=== PATIENT | male | born 1995 | race Caucasian/White ===

== ENCOUNTER → 2016-10-18 | Outpatient (POV) ==
[2015-12-18 08:42] VITALS: BMI 30.9
== END ==
LOC: OUTPT 00:01
PROVIDERS: ATTEND Otolaryngology
DX: Z02.1 Encounter for pre-employment examination (principal)
CPT/HCPCS: 92567

== ENCOUNTER 2017-05-05 23:55 | Emergency (ER) ==
[2017-05-06 00:07] VITALS: BMI 31.1
[2017-05-06] MEDS ORDERED: SODIUM CHLORIDE 1,000 ML IV STA ×3 (00:07→00:08)
[2017-05-06] MEDS ORDERED: ZOFRAN 4 MG/2 ML IVP STA (00:08)
[2017-05-06] MEDS ORDERED: MORPHINE 2 MG/ML SYRINGE IVP STA (00:08)
--- NOTE | 2017-05-06 00:42 | CT ---
EXAM: CT abdomen pelvis without intravenous contrast 06/06/2016. Sagittal and coronal reformatted i mages obtained HISTORY: Mid abdominal pain. Recurrent vomiting COMPARISON: 06/10/2012 FINDINGS: The liver, gallbladder, adrenal glands and kidneys show no acute abnormality. No urinary obstruction. The spleen and pancreas show no acute process. There is no evidence of bowel obstruction. Normal appendix. Unremarkable urinary bladder. No free air or free fluid There are air-fluid levels throughout small bowel and colon. The appearance is suggestive of enterit is/diarrhea. IMPRESSION: 1. No urinary or bowel obstruction and normal appendix 2. Air-fluid levels throughout small bowel and colon. The appearance is suggestive of enteritis/coral rrhea.
[2017-05-06 00:47] LABS: BASOPHILS % (AUTO) 0.1 % (0.0-3.0); EOSINOPHILS % (AUTO) 0.4 % (0.0-7.0); HEMATOCRIT 42.4 % (42.0-52.0); HEMOGLOBIN 15.3 g/dl (14.0-18.0); IMMATURE GRANULOCYTE % (AUTO) 0.3 % (0.0-5.0); LYMPHOCYTES # (AUTO) 0.3 K/uL (0.60-3.4); LYMPHOCYTES % (AUTO) 3.9 (10.0-50.0); MEAN CORPUSCULAR HEMOGLOBIN 27.7 pg (27.0-31.0); MEAN CORPUSCULAR HGB CONC 36.1 (31.8-35.4); MEAN CORPUSCULAR VOLUME 76.7 fl (80.0-94.0); MONOCYTES # (AUTO) 0.4 K/uL (0.4-2.0); MONOCYTES % (AUTO) 4.5 (0-10); NEUTROPHILS # (AUTO) 7.2 K/ul (2.0-6.9); NEUTROPHILS % (AUTO) 90.8; PLATELET COUNT 205 10^3/uL (140-440); RED BLOOD COUNT 5.53 10^6/ul (4.70-6.10); WHITE BLOOD COUNT 7.92 K/ul (4.2-10.2)
[2017-05-06 01:00] LABS: BILIRUBIN,URINE Negative (NEGATIVE); KETONES,URINE Negative (NEGATIVE); LEUKOCYTE ESTERASE ,URINE Negative (NEGATIVE); NITRITE,URINE Negative (NEGATIVE); PH,URINE 8.5 (5-9); PROTEIN,URINE 1+ (NEGATIVE); URINE, BLOOD Negative (NEGATIVE)
[2017-05-06 01:01] LABS: ADD URINE MICROSCOPIC YES
[2017-05-06 01:08] LABS: ALBUMIN 3.9 g/dL (3.4-5.0); ALBUMIN/GLOBULIN RATIO 1.15; ANION GAP 17.4; BILIRUBIN,TOTAL 0.76 mg/dL (0.00-1.20); BUN/CREATININE RATIO 19.51; CALCIUM 9.3 mg/dL (8.2-10.2); CREATININE 0.82 mg/dL (0.60-1.10); POTASSIUM 3.4 mmol/L (3.5-5.1); TOTAL PROTEIN 7.3 g/dL (6.4-8.2)
[2017-05-06 01:10] LABS: FLU INTERNAL QC INTERNAL QC VALID; RAPID FLU A NEGATIVE (NEGATIVE); RAPID FLU B NEGATIVE (NEGATIVE)
[2017-05-06 01:27] LABS: ERYTHROCYTE SEDIMENTATION RATE 2 mm/hr (0-15); ESR INTERNAL QC INTERNAL QC VALID
--- NOTE | 2017-05-06 01:45 | ED.PDOC ---
General ED Provider: Dr. MARSHALL LÓPEZ-ER Chief Complaint: Nausea/Vomiting Stated Complaint: he notes having vomiting and nonbloody diarrhea over past several hours--several family members ill with same illness Time Seen by Physician: 23:55 Mode of Arrival: Walk-In Information Source: Patient Exam Limitations: No limitations Primary Care Provider: GLEN GARCIANEW [facility] Nursing and Triage Documentation Reviewed and Agree: Yes GI Complaint Exam - Vomiting/Diarrhea Complaint/Exam Onset/Duration: several hours Symptoms Are: Still present Initial Severity: Mild Current Severity: Moderate Character of Vomiting: Reports: Non-bilious Character of Diarrhea: Reports: Watery Aggravating: Reports: None Alleviating: Reports: None Associated Signs and Symptoms: Reports: Abdominal pain, Cramping Non-GI Risk Factors: Reports: None Abdominal Findings: Present: None Kussmaul Respirations Present: No Differential Diagnoses: Dehydration, Viral Gastroenteritis, Bacterial Gastroenteritis Review of Systems - Review Of Systems Constitutional: Reports: No symptoms Eyes: Reports: No symptoms Ears, Nose, Mouth, Throat: Reports: No symptoms Respiratory: Reports: No symptoms Cardiac: Reports: No symptoms GI: Reports: Diarrhea, Nausea, Vomiting : Reports: No symptoms Musculoskeletal: Reports: No symptoms Skin: Reports: No symptoms Neurological: Reports: No symptoms Endocrine: Reports: No symptoms Hematologic/Lymphatic: Reports: No symptoms All Other Systems: Reviewed and Negative Past Medical History - Past Medical History Previously Healthy: No Endocrine: Reports: None Cardiovascular: Reports: None Respiratory: Reports: None Hematological: Reports: None Gastrointestinal: Reports: None Genitourinary: Reports: None Neuro/Psych: Reports: None Musculoskeletal: Reports: Other (tenderness anterior chest wall nonfocal left >> right) Cancer: Reports: None Other Pertinent Past Medical History: Prior back injury ; runs 4 miles a day - Surgical History General Surgical History: Reports: None - Family History Family History: Reports: None - Social History Smoking Status: Former smoker Hx Substance Use: No (OCC. POT IN THE PAST) Alcohol Screening: Occasionally - Immunizations Tetanus Shot up to Date: (UNKNOWN) Physical Exam - Physical Exam Appearance: Well-appearing, No pain distress, Well-nourished Eyes: ODETTE ENT: Ears normal, Nose normal, Oropharynx normal Neck: Supple Respiratory: Airway patent Cardiovascular: RRR, Pulses normal, No rub, No murmur GI/: Soft, Nontender, No masses, Bowel sounds normal, No Organomegaly Musculoskeletal: Normal strength Skin: Warm, Dry, Normal color Neurological: Sensation intact Psychiatric: Affect appropriate, Mood appropriate Interpretation - Radiology Interpretation Radiology Interpretation By: Radiologist Radiology Results: Negative Exam Interpreted: CT Scan Re-Evaluation - Re-Evaluation Time of Re-Evaluation: 01:46 Status: Improved Vital Signs Stable: Yes Pain Level: 0 Appearance: NAD Lungs: Clear Skin: Warm and Dry Neuro: Alert and Oriented X3 CV: RRR Critical Care Note - Critical Care Note Total Time (mins): 0 Course - Course Hematology/Chemistry: 05/06/17 00:30 05/06/17 00:30 Orders, Labs, Meds: Lab Review 05/06/17 05/06/17 05/06/17 00:09 00:15 00:30 WBC 7.92 RBC 5.53 Hgb 15.3 Hct 42.4 MCV 76.7 L MCH 27.7 MCHC 36.1 H RDW Coeff of [place] 13.0 Plt Count 205 Immature Gran % (Auto) 0.3 Neut % (Auto) 90.8 Lymph % (Auto) 3.9 L [place] % (Auto) 4.5 Eos % (Auto) 0.4 Baso % (Auto) 0.1 Immature Gran # (Auto) 0.0 Neut # 7.2 H Lymph # 0.3 L [place] # 0.4 Eos # 0.0 Baso # 0.0 ESR 2 Sodium Potassium Chloride Carbon Dioxide Anion Gap BUN Creatinine Estimated GFR (MDRD) BUN/Creatinine Ratio Glucose Lactic Acid Calcium Total Bilirubin AST ALT Alkaline Phosphatase Total Protein Albumin Globulin Albumin/Globulin Ratio Amylase Lipase Procalcitonin Urine Color Yellow Urine Clarity Clear Urine pH 8.5 Ur Specific [place] 1.015 Urine Protein 1+ Urine Glucose (UA) Negative Urine Ketones Negative Urine Blood Negative Urine Nitrite Negative Urine Bilirubin Negative Urine Urobilinogen 1.0 Ur Leukocyte Esterase Negative Ur Squamous Epith Cells Not present Urine Mucus Trace Influenza A (Rapid) Negative Influenza B (Rapid) Negative 05/06/17 05/06/17 05/06/17 00:30 00:30 00:30 WBC RBC Hgb Hct MCV MCH MCHC RDW Coeff of [place] Plt Count Immature Gran % (Auto) Neut % (Auto) Lymph % (Auto) [place] % (Auto) Eos % (Auto) Baso % (Auto) Immature Gran # (Auto) Neut # Lymph # [place] # Eos # Baso # ESR Sodium 137 Potassium 3.4 L Chloride 105 Carbon Dioxide 18 L Anion Gap 17.4 BUN 16 Creatinine 0.82 Estimated GFR (MDRD) 117.00 BUN/Creatinine Ratio 19.51 Glucose 127 H Lactic Acid 29.2 H Calcium 9.3 Total Bilirubin 0.76 AST 12 L ALT 19 Alkaline Phosphatase 56 Total Protein 7.3 Albumin 3.9 Globulin 3.4 Albumin/Globulin Ratio 1.15 Amylase 46 Lipase 13 Procalcitonin 0.13 Urine Color Urine Clarity Urine pH Ur Specific [place] Urine Protein Urine Glucose (UA) Urine Ketones Urine Blood Urine Nitrite Urine Bilirubin Urine Urobilinogen Ur Leukocyte Esterase Ur Squamous Epith Cells Urine Mucus Influenza A (Rapid) Influenza B (Rapid) Orders Category Date Time Status ED IV/MEDIPORT/POWERPORT .ONCE EMERGENCY 05/06/17 00:07 Active AMYLASE Stat LAB 05/06/17 00:30 Completed BLOOD CULTURE (ED ONLY) Stat LAB 05/06/17 00:30 Received CBC W/ AUTO DIFF Stat LAB 05/06/17 00:30 Completed COMPREHENSIVE METABOLIC PANEL Stat LAB 05/06/17 00:30 Completed ESR Stat LAB 05/06/17 00:30 Completed LACTIC ACID Stat LAB 05/06/17 00:30 Completed LIPASE Stat LAB 05/06/17 00:30 Completed MOLECULAR GROUP A STREP Stat LAB 05/06/17 00:09 Results PROCALCITONIN Stat LAB 05/06/17 00:30 Completed RAPID FLU A/B Stat LAB 05/06/17 00:09 Completed STREP SCREEN Stat LAB 05/06/17 00:09 Results URINALYSIS C & S IF INDICATED Stat LAB 05/06/17 00:15 Completed 0.9 % Sodium Chloride [Saline Flush] MEDS 05/06/17 00:07 Ordered 1 syr IVF PRN PRN Morphine Sulfate [Morphine 2 mg/ml Syringe] MEDS 05/06/17 00:08 Discontinued 2 mg IVP ONCE STA Ondansetron HCl/Pf [Zofran 4 mg/2 ml] MEDS 05/06/17 00:08 Discontinued 8 mg IVP ONCE STA Sodium Chloride 0.9% [Sodium Chloride] 1,000 ml MEDS 05/06/17 00:07 Discontinued IV BOLUS Sodium Chloride 0.9% [Sodium Chloride] 1,000 ml MEDS 05/06/17 00:07 Discontinued IV BOLUS Sodium Chloride 0.9% [Sodium Chloride] 1,000 ml MEDS 05/06/17 00:[address] ABDOMEN/PELVIS WO CONTRAST Stat RADS 05/06/17 00:09 Completed Medications Generic Name Dose Route Start Last Admin Trade Name Freq PRN Reason Stop Dose Admin Sodium Chloride 1 syr 05/06/17 00:07 05/06/17 00:28 Saline Flush IVF 1 syr PRN PRN Administration To flush IV Discontinued Medications Generic Name Dose Route Start Last Admin Trade Name Freq PRN Reason Stop Dose Admin Sodium Chloride 1,000 mls @ 1,000 mls/hr 05/06/17 00:07 05/06/17 01:31 Sodium Chloride IV 05/06/17 01:06 1,000 mls/hr BOLUS STA Administration Sodium Chloride 1,000 mls @ 1,000 mls/hr 05/06/17 00:07 Sodium Chloride IV 05/06/17 01:06 BOLUS STA Sodium Chloride 1,000 mls @ 1,000 mls/hr 05/06/17 00:08 05/06/17 00:29 Sodium Chloride IV 05/06/17 01:07 1,000 mls/hr BOLUS STA Administration Morphine Sulfate 2 mg 05/06/17 00:08 05/06/17 00:35 Morphine 2 Mg/Ml Syringe IVP 05/06/17 00:09 2 mg ONCE STA Administration Ondansetron HCl 8 mg 05/06/17 00:08 05/06/17 00:33 Zofran 4 Mg/2 Ml IVP 05/06/17 00:09 8 mg ONCE STA Administration Vital Signs: Temp Pulse Resp BP Pulse Ox 05/05/17 23:55 98.6 F 128 H 24 118/77 97 Departure - Departure Time of Disposition: 01:46 Disposition: HOME SELF-CARE Discharge Problem: Gastroenteritis Instructions: Dehydration (ED), Gastroenteritis (ED) Condition: Good Pt referred to PMD for follow-up: Yes Additional Instructions: avoid diary products for three days--zofran 4mg q 4hrs prn#4 return prn Allergies/Adverse Reactions: Allergies No Known Allergies Allergy (Verified 05/06/17 00:02) Home Medications: Ambulatory Orders 1 [No Reported Medications] 05/06/17 Disposition Discussed With: Patient, Family
[2017-05-06 02:33] VITALS: BP 106/65; TEMP 100.5
== END 2017-05-06 03:32 | disposition home or self-care (01) ==
LOC: ED 23:55
DX: K52.9 Noninfective gastroenteritis and colitis, unspecified (principal)
CPT/HCPCS: 36415; 80053; 81001; 82150; 83605; 83690; 84145; 85025; 85651; 87040; 87651; 87804; 87880; 96361; 96374; 96375; 99283

== ENCOUNTER 2017-05-23 08:59 | Emergency (ER) ==
[2017-05-23 08:59] VITALS: BMI 31.1
[2017-05-23 09:08] VITALS: BP 132/90; TEMP 97.2
[2017-05-23] MEDS ORDERED: SODIUM CHLORIDE 1,000 ML IV STA (09:12)
[2017-05-23] MEDS ORDERED: MORPHINE 2 MG/ML SYRINGE IVP STA (09:21)
[2017-05-23] MEDS ORDERED: ZOFRAN 4 MG/2 ML IVP STA (09:22)
--- NOTE | 2017-05-23 09:42 | ED.PDOC ---
General ED Provider: Dr. RADHA GILLESPIE Chief Complaint: Abdominal Pain Stated Complaint: ABDOMINAL PAIN/ FLU LIKE SYMPTOMS Time Seen by Physician: 09:00 Mode of Arrival: Walk-In Information Source: Patient Exam Limitations: No limitations Nursing and Triage Documentation Reviewed and Agree: Yes Reviewed sepsis parameters & appropriate labs ordered?: Yes System Inflammatory Response Syndrome: Not Applicable Sepsis Protocol: For patient's 13 years and over: Temp is 96.8 and below OR 101 and greater Pulse >90 BPM Resp >20/minute Acutely Altered Mental Status Are patient's symptoms suggestive of a new infection, such as: -Pneumonia -Skin, Soft Tissue -Endocarditis -UTI -Bone, Joint Infection -Implantable Device -Acute Abdominal Infection -Wound Infection -Meningitis -Blood Stream Catheter Infection -Unknown GI Complaint Exam - Abdominal Pain Complaint/Exam Onset: Gradual Duration: 1 DAY LUQ ALSO N,V,D Symptoms Are: Still present (ABDOMINAL PAIN) Timing: Constant Initial Severity: Moderate Current Severity: Moderate Location of Pain: LLQ Character: Reports: Cramping Aggravating: Reports: None Alleviating: Reports: None Associated Signs and Symptoms: Reports: Nausea, Vomiting, Diarrhea. Denies: Diaphoresis, Fever, Cough, Chest pain, Dizziness, Back pain, Constipation, Blood in stool, Dysuria, Urinary frequency, Decreased urine output, Decreased appetite, Discharge, Decreased activity AAA Risk Factors: Reports: None Cardiac Risk Factors: Reports: None Testicular Torsion Risk Factors: Reports: None Surgical Obstruction Risk Factors: Reports: None Related Surgical History: Reports: None Abdominal Findings: Present: None Differential Diagnoses: Constipation, Diverticulitis, Gastroenteritis, Pancreatitis, Pneumonia, Renal Colic, UTI, Other (VIRAL SYNDROME) - Vomiting/Diarrhea Complaint/Exam Onset/Duration: 1 DAY FLU LIKE SYMP MAINLY, N,V ABDOMINAL PAIN Symptoms Are: Still present Episodes of Vomiting over last 24 Hours: 2 Episodes of Diarrhea Over Last 24 Hours: 3 Initial Severity: Mild Current Severity: Mild Character of Vomiting: Reports: Non-bilious Aggravating: Reports: None Alleviating: Reports: None Associated Signs and Symptoms: Reports: Abdominal pain. Denies: Dizziness, Light-headedness, Melena, Hematemesis, Fever, Cramping Related History: Reports: Similar episode Non-GI Risk Factors: Reports: None Surgical Obstruction Risk Factors: Reports: None Related Surgical History: Reports: None Abdominal Findings: Present: None Kussmaul Respirations Present: No Differential Diagnoses: Dehydration, Gastritis, Viral Gastroenteritis, UTI Review of Systems - Review Of Systems Constitutional: Reports: No symptoms Eyes: Reports: No symptoms Ears, Nose, Mouth, Throat: Reports: No symptoms Respiratory: Reports: No symptoms Cardiac: Reports: No symptoms GI: Reports: Abdominal pain, Diarrhea, Nausea, Vomiting : Reports: No symptoms Musculoskeletal: Reports: No symptoms Skin: Reports: No symptoms Neurological: Reports: No symptoms Endocrine: Reports: No symptoms Hematologic/Lymphatic: Reports: No symptoms All Other Systems: Reviewed and Negative Past Medical History - Past Medical History Previously Healthy: No Endocrine: Reports: None Cardiovascular: Reports: None Respiratory: Reports: None Hematological: Reports: None Gastrointestinal: Reports: None Genitourinary: Reports: None Neuro/Psych: Reports: None Musculoskeletal: Reports: Other (tenderness anterior chest wall nonfocal left >> right) Cancer: Reports: None Other Pertinent Past Medical History: Prior back injury ; runs 4 miles a day - Surgical History General Surgical History: Reports: None - Family History Family History: Reports: None - Social History Smoking Status: Former smoker Hx Substance Use: No Alcohol Screening: Occasionally - Immunizations Tetanus Shot up to Date: Yes Physical Exam - Physical Exam Appearance: Well-appearing, No pain distress, Well-nourished Eyes: ODETTE, EOMI, Conjunctiva clear ENT: Ears normal, Nose normal, Oropharynx normal Respiratory: Airway patent, Breath sounds clear, Breath sounds equal, Respirations nonlabored Cardiovascular: RRR, Pulses normal, No rub, No murmur GI/: Soft, Nontender, No masses, Bowel sounds normal, No Organomegaly Musculoskeletal: Normal strength, ROM intact, No edema, No calf tenderness Skin: Warm, Dry, Normal color Neurological: Sensation intact, Motor intact, Reflexes intact, Cranial nerves intact, Alert, Oriented Psychiatric: Affect appropriate, Mood appropriate Critical Care Note - Critical Care Note Total Time (mins): 0 Course - Course Orders, Labs, Meds: Orders Category Date Time Status NPO REMINDER: IMAGING ONCE CARE 05/23/17 09:11 Active ED IV/MEDIPORT/POWERPORT .ONCE EMERGENCY 05/23/17 09:10 Active AMYLASE Stat LAB 05/23/17 09:09 Ordered CBC W/ AUTO DIFF Stat LAB 05/23/17 09:08 Ordered COMPREHENSIVE METABOLIC PANEL Stat LAB 05/23/17 09:09 Ordered LIPASE Stat LAB 05/23/17 09:09 Ordered 0.9 % Sodium Chloride [Saline Flush] MEDS 05/23/17 09:10 Ordered 1 syr IVF PRN PRN Morphine Sulfate [Morphine 2 mg/ml Syringe] MEDS 05/23/17 09:21 Stat 2 mg IVP ONCE STA Ondansetron HCl/Pf [Zofran 4 mg/2 ml] MEDS 05/23/17 09:22 Stat 4 mg IVP ONCE STA Sodium Chloride 0.9% [Sodium Chloride] 1,000 ml MEDS 05/23/17 09:12 Active IV BOLUS CHEST, 2 VIEWS PA & LAT Stat RADS 05/23/17 09:[address] ABDOMEN/PELVIS W CONTRAST Stat RADS 05/23/17 09:10 Ordered Medications Discontinued Medications Generic Name Dose Route Start Last Admin Trade Name Freq PRN Reason Stop Dose Admin Sodium Chloride 1,000 mls @ 1,000 mls/hr 05/23/17 09:12 Sodium Chloride IV 05/23/17 10:11 BOLUS STA Morphine Sulfate 2 mg 05/23/17 09:21 Morphine 2 Mg/Ml Syringe IVP 05/23/17 09:22 ONCE STA Ondansetron HCl 4 mg 05/23/17 09:22 Zofran 4 Mg/2 Ml IVP 05/23/17 09:23 ONCE STA Sodium Chloride 1 syr 05/23/17 09:10 Saline Flush IVF PRN PRN To flush IV Vital Signs: Temp Pulse Resp BP Pulse Ox 05/23/17 09:00 97.2 F L 101 H 20 132/90 97 Departure - Departure Time of Disposition: 09:42 (PT LEFT AMA I WAS NOT IN THE ROOM WHEN HE DID SO BUT 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 LEFT AMA DID NOT SIGN OUT ) Disposition: AMA Discharge Problem: Abdominal pain Instructions: Abdominal Pain (ED) Condition: Good Pt referred to PMD for follow-up: Yes Allergies/Adverse Reactions: Allergies No Known Allergies Allergy (Verified 05/23/17 09:00) Home Medications: Ambulatory Orders 1 [No Reported Medications] 05/06/17
== END 2017-05-23 09:33 | disposition left against medical advice (07) ==
LOC: ED 08:59
DX: R10.12 Left upper quadrant pain (principal); R11.2 Nausea with vomiting, unspecified; R19.7 Diarrhea, unspecified
CPT/HCPCS: 99281